=== PATIENT | female | born 1970 | race Caucasian/White ===

== ENCOUNTER 2018-06-08 11:31 | Outpatient (CLI) | payer OTHER ==
[~2018-06-08 11:31] MED LIST: CLONAZEPAM1 MG; COUMADIN2.5 MG; NEURONTIN300 MG; ORENCIA125 MG/1 M
== END 2018-06-08 16:09 | disposition home or self-care (01) ==
LOC: RAD 11:31
DX: M17.11 Unilateral primary osteoarthritis, right knee (principal)

== ENCOUNTER 2019-01-27 15:36 | Outpatient (CLI) | payer OTHER ==
[2019-01-29] MEDS ORDERED: TRAMADOL HCL50 MG PO (08:45)
[2019-01-29] MEDS ORDERED: [UNRECOGNIZED DRUG - OTHER] PO (08:48)
[2019-01-29] MEDS ORDERED: [UNRECOGNIZED DRUG - OTHER] PO (08:49)
[2019-01-29] MEDS ORDERED: METROTREXATE PO (08:50)
[2019-01-29] MEDS ORDERED: FOLIC ACID1 MG PO (08:51)
== END 2019-01-28 09:03 | disposition home or self-care (01) ==
LOC: EKG 15:36
DX: I10 Essential (primary) hypertension (principal); Z79.01 Long term (current) use of anticoagulants

== ENCOUNTER 2019-02-02 05:55 | Day surgery (SDC) | payer OTHER ==
[~2019-02-02 05:55] MED LIST changes: +FOLIC ACID1 MG PO; +METROTREXATE PO; +TRAMADOL HCL50 MG PO; +[UNRECOGNIZED DRUG - OTHER] PO; +[UNRECOGNIZED DRUG - OTHER] PO
== END 2019-02-02 16:40 | disposition home or self-care (01) ==
LOC: CIR.AMB 05:55
DX: N60.82 Other benign mammary dysplasias of left breast (principal)

== ENCOUNTER 2019-02-25 10:50 | Outpatient (CLI) | payer OTHER | END 2019-02-25 10:59 | disposition home or self-care (01) | LOC: NUCLEAR 10:50 | DX: M81.0 Age-related osteoporosis without current pathological fracture (principal) ==

== ENCOUNTER → 2019-06-21 | Outpatient (CLI) | payer OTHER | END | disposition home or self-care (01) | LOC: NUCLEAR 15:32 | DX: I87.2 Venous insufficiency (chronic) (peripheral) (principal); D68.61 Antiphospholipid syndrome; I80.222 Phlebitis and thrombophlebitis of left popliteal vein; M06.89 Other specified rheumatoid arthritis, multiple sites ==

== ENCOUNTER 2019-08-03 12:37 | Emergency (ER) | payer OTHER ==
[~2019-08-03] VITALS: Ht 162.6 cm; Wt 90.7 kg
[2019-08-03] MEDS ORDERED: GABA PO (13:14)
[2019-08-03] MEDS ORDERED: COUMA PO (13:14)
== END 2019-08-03 19:02 | disposition home or self-care (01) ==
LOC: ER 12:37
DX: B34.9 Viral infection, unspecified (principal); J45.998 Other asthma; B96.0 Mycoplasma pneumoniae [M. pneumoniae] as the cause of diseases classified elsewhere

== ENCOUNTER 2019-11-19 11:38 | Emergency (ER) | payer OTHER ==
[~2019-11-19] VITALS: Ht 162.6 cm; Wt 104.3 kg
[~2019-11-19 11:38] MED LIST changes: +COUMA PO; +GABA PO
[2019-11-19] MEDS ORDERED: EVISTA60 MG (11:46)
[2019-11-19] MEDS ORDERED: COUMADIN1 MG (11:46)
[2019-11-19] MEDS ORDERED: NEURONTIN600 M1 (11:47)
[2019-11-19] MEDS ORDERED: EMBREL (11:47)
[2019-11-19] MEDS ORDERED: TRAMADOL HCL50 MG (11:47)
[2019-11-19] MEDS ORDERED: CLONAZEPAM1 M1 (11:48)
[2019-11-19] MEDS ORDERED: METROTEZATE (11:48)
== END 2019-11-19 14:01 | disposition home or self-care (01) ==
LOC: ER 11:38
DX: S20.211A Contusion of right front wall of thorax, initial encounter (principal); W01.198A Fall on same level from slipping, tripping and stumbling with subsequent striking against other object, initial encounter; Y93.89 Activity, other specified; Y92.018 Other place in single-family (private) house as the place of occurrence of the external cause; Y99.8 Other external cause status

== ENCOUNTER 2020-09-28 12:16 | Outpatient (CLI) | payer OTHER ==
[~2020-09-28 12:16] MED LIST changes: +CLONAZEPAM1 M1; +COUMADIN1 MG; +EMBREL; +EVISTA60 MG; +METROTEZATE; +NEURONTIN600 M1; +TRAMADOL HCL50 MG
== END 2020-09-28 12:19 | disposition home or self-care (01) ==
LOC: LAB 12:16
PROVIDERS: ATTEND Internal Medicine Cardiovascular Disease
DX: N39.0 Urinary tract infection, site not specified (principal); B96.29 Other Escherichia coli [E. coli] as the cause of diseases classified elsewhere

== ENCOUNTER → 2021-05-11 | Outpatient (CLI) | payer OTHER | END | disposition home or self-care (01) | LOC: MRI 09:46 | PROVIDERS: ATTEND Urology | DX: N28.1 Cyst of kidney, acquired (principal); K76.0 Fatty (change of) liver, not elsewhere classified | CPT/HCPCS: 74181 ==

== ENCOUNTER 2021-05-31 18:10 | Inpatient (IN) | payer OTHER ==
[~2021-05-31] VITALS: Ht 162.6 cm; Wt 93.0 kg
[2021-05-31] MEDS ORDERED: GLIMEPIRIDE1 M1 (18:40)
[2021-05-31] MEDS ORDERED: BUSPIRONE HCL7.5 MG (18:41)
== END 2021-06-08 16:37 | disposition home or self-care (01) | DRG 603 ==
LOC: ER 18:10 → MEDJ 06-01 19:22
PROVIDERS: ADMIT Internal Medicine; ATTEND Internal Medicine
PROC: B54BZZZ Ultrasonography of Right Lower Extremity Veins (ICD-10-PCS; principal; 2021-06-01)
DX: L03.115 Cellulitis of right lower limb (principal); D68.69 Other thrombophilia; M06.8A Other specified rheumatoid arthritis, other specified site; E11.9 Type 2 diabetes mellitus without complications; Z79.4 Long term (current) use of insulin; W19.XXXA Unspecified fall, initial encounter; Z20.822 Contact with and (suspected) exposure to COVID-19; Y93.89 Activity, other specified; Y92.89 Other specified places as the place of occurrence of the external cause; Y99.8 Other external cause status; Z96.652 Presence of left artificial knee joint

== ENCOUNTER 2021-06-14 13:00 | Outpatient (CLI) | payer OTHER ==
[~2021-06-14 13:00] MED LIST changes: +BUSPIRONE HCL7.5 MG; +GLIMEPIRIDE1 M1
== END 2021-06-14 13:05 | disposition home or self-care (01) ==
LOC: TOM 13:00
PROVIDERS: ATTEND Internal Medicine Cardiovascular Disease
DX: G93.89 Other specified disorders of brain (principal); R51.0 Headache with orthostatic component, not elsewhere classified

== ENCOUNTER → 2021-06-18 | Emergency (ER) | payer OTHER | END | disposition left against medical advice (07) | LOC: ER 15:23 | DX: Z53.21 Procedure and treatment not carried out due to patient leaving prior to being seen by health care provider (principal) ==

== ENCOUNTER 2021-11-13 12:32 | Outpatient (CLI) | payer OTHER | END 2021-11-13 12:33 | disposition home or self-care (01) | LOC: MRI 12:32 | PROVIDERS: ATTEND Psychiatry & Neurology Clinical Neurophysiology | DX: S06.5X0A Traumatic subdural hemorrhage without loss of consciousness, initial encounter (principal) | CPT/HCPCS: 70551 ==